=== PATIENT | female | born 1970 | race Caucasian/White ===

== ENCOUNTER 2016-07-02 10:22 | Emergency (ER) | payer MEDICAID ==
[~2016-07-02] VITALS: Ht 167.6 cm; Wt 81.6 kg
[2016-07-02 10:25] VITALS: BP 143/85
[2016-07-02] MEDS ORDERED: cefTRIAXone SOD 1,000 MG VL IM ONE (11:45)
[2016-07-02] MEDS ORDERED: methylPREDNISolone SOD SUCC 125 MG/2 ML VL IM ONE (11:45)
== END 2016-07-02 12:16 | disposition home or self-care (01) ==
LOC: ER 10:22
DX: J03.90 Acute tonsillitis, unspecified (principal); Z88.2 Allergy status to sulfonamides
CPT/HCPCS: 71020; 96372; 99284; J0696; J2930